=== PATIENT | female | born 1995 | race Caucasian/White ===

== ENCOUNTER 2016-11-18 02:41 | Emergency (ER) | payer OTHER ==
[~2016-11-18] VITALS: Ht 154.9 cm; Wt 55.6 kg
[~2016-11-18 02:41] MED LIST: BCPILLS PO; PRENTAB26 PO
[2016-11-18 02:44] VITALS: TEMP 36.6; Ht 154.9 cm; Wt 55.6 kg
[2016-11-18] MEDS ORDERED: ALBU18002 INH (03:00)
[2016-11-18] MEDS ORDERED: LEVO1IUD INT UTER (03:00)
[2016-11-18] MEDS ORDERED: BUPR-79 PO (03:00)
[2016-11-18] MEDS ORDERED: CEFTRIAXONE SOD INJ 1 GM ADDVIAL IM STA (04:04)
[2016-11-18] MEDS ORDERED: PRED20TA2 PO (04:11)
[2016-11-18] MEDS ORDERED: AZITHROMYCIN 250 MG TAB PO ONE (04:15)
[2016-11-18] MEDS ORDERED: NORCO 5/325MG HOME PACK PO ONE (04:15)
[2016-11-18 04:17] VITALS: BP 120/74; PULSE 73; O2SAT 98
[2016-11-18 05:34] LABS: URINE APPEARANCE TURBID (CLEAR); URINE BILIRUBIN NEG (NEG); URINE COLOR YELLOW; URINE EPITHELIAL CELL AUTO >30 /lpf (0-5); URINE NITRITE NEG (NEG); URINE PH 6.5 (4.5-7.5); URINE SPECIFIC GRAVITY 1.027 (1.000-1.030); UROBILINOGEN NEG (NEG); ZZUR CULT IF INDIC CLEAN CATCH YES
[2016-11-18 05:36] LABS: MANUAL MICROSCOPIC REQUIRED? NO; REVIEW REQ? YES
--- NOTE | 2016-11-18 07:30 | EMERGENCY ROOM VISIT NOTE ---
History First contact with patient: 02:47 Chief Complaint: VAGINAL DISCHARGE Stated Complaint: SWOLLEN,RED,ITCHY VAGINA History of Present Illness The patient is a 21 year old female who presents to the Emergency Room with complaints of vaginal irritation for the past week that is acutely worsened over the past 3 hours. The patient reports having some generalized irritation vaginally without drainage or discharge. The patient states her symptoms have been slowly escalating in nature, and she felt like she may have a yeast infection. The patient used a single dose of Monistat before bed, and then went to sleep. When she awoke tonight she states that she had significant burning and irritation of the vaginal vault. The patient has not had fever or chills. She is sexually active with a new partner, and states that she has not had recent STD testing. The patient's last FACILITY SERVICE MANAGER appointment was about 10 days ago, and she did not have any issues at that time. The patient is without abdominal pain. She denies chance of . She rates her discomfort an 8/ 10. Review of Systems More than 10 systems were reviewed and otherwise negative with the exception of history of present illness. Past Medical/Surgical History Medical Problems: (1) Chronic Tonsillitis (2) (3) Urin Tract Infection Nos (4) Uterine contractions at greater than 20 weeks of gestation Surgical Problems: (1) No significant past surgical history Family History No pertinent family history Social History Smoking Status: Former Smoker Alcohol Use: none Marital Status: single Housing Status: lives with family Current/Historical Medications Scheduled Bupropion (Wellbutrin Sr), Unknown Dose PO DAILY Levonorgestrel (Iud) (Corazon), Unknown Dose INT UTER DIRECTED Prednisone (Prednisone Tab), 2 TAB PO DAILY Scheduled PRN Albuterol Sulfate (Proair Respiclick), 2 PUFFS INH Q4H PRN for Shortness of Breath Allergies Coded Allergies: No Known Allergies (Unverified , 11/18/16) Physical Exam Vital Signs Date Time Temp Pulse Resp B/P (MAP) Pulse Ox O2 Delivery O2 Flow Rate FiO2 11/18/16 04:17 73 18 120/74 98 Room Air 11/18/16 02:44 36.6 79 20 112/61 99 Room Air Pain Rating (0-10): 2.0 Physical Exam VITALS: Vitals are noted on the nurse's note and reviewed by myself. Vital signs stable. GENERAL: Well-developed, well-nourished, white female, who is in no acute distress and resting comfortably. Patient is cooperative with the examination. HEAD: Normocephalic atraumatic. HEART: Regular rate and rhythm without murmurs gallops or rubs. LUNGS: Clear to auscultation bilaterally without wheezes, rales or rhonchi. No retractions or accessory muscle use. ABDOMEN: Positive normal bowel sounds x 4. Soft, nontender, without masses or organomegaly. No guarding or rebound tenderness. : Examination was performed in the presence of female nursing prep cook. Normal-appearing external female genitalia. The vaginal vault is erythematous without bleeding. There is a thick white drainage as well as a thin beige drainage coming from the cervix. Cultures were obtained. No cervical motion tenderness. Medical Decision & Procedures Laboratory Results Test 11/18/16 02:55 11/18/16 03:45 Urine Color YELLOW Urine Appearance TURBID (CLEAR) Urine pH 6.5 (4.5-7.5) Urine Specific Bath 1.027 (1.000-1.030) Urine Protein NEG (NEG) Urine Glucose (UA) NEG (NEG) Urine Ketones TRACE (NEG) Urine Occult Blood NEG (NEG) Urine Nitrite NEG (NEG) Urine Bilirubin NEG (NEG) Urine Urobilinogen NEG (NEG) Urine Leukocyte Esterase SMALL (NEG) Urine WBC (Auto) 10-30 /hpf (0-5) Urine RBC (Auto) >30 /hpf (0-4) Urine Hyaline Casts (Auto) 0 /lpf (0-5) Urine Epithelial Cells (Auto) >30 /lpf (0-5) Urine Bacteria (Auto) NEG (NEG) Urine Crystals CALCIUM OXALATE (NONE Urine Test NEG (NEG) Date/Time Source Procedure Growth Status 11/18/16 03:45 Cervix Swab Trichomonas Preparation - Final Complete Medications Administered Medications (Trade) Dose Ordered Sig/Teddy Route Start Time Stop Time Status Last Admin Dose Admin Ceftriaxone Sodium (Rocephin Inj) 1 gm NOW STAT IM 11/18/16 04:04 11/18/16 04:05 DC 11/18/16 04:25 1 GM Azithromycin (Zithromax Tab) 1,000 mg NOW ONCE PO 11/18/16 04:15 11/18/16 04:16 DC 11/18/16 04:24 1,000 MG Prednisone (PredniSONE TAB) 40 mg NOW STAT PO 11/18/16 04:04 11/18/16 04:05 DC 11/18/16 04:24 40 MG Acetaminophen/ Hydrocodone Bitart ([place] 5/325mg Home Pack) 1 homepack UD ONCE PO 11/18/16 04:15 11/18/16 04:16 DC 11/18/16 04:24 1 HOMEPACK ED Course Physical exam and history were performed. Nursing notes and EMR were reviewed. Patient appears to have vaginal irritation for the past week is acutely exacerbated. On examination she does have drainage and discharge which was cultured and sent to the lab. Urine was collected and is negative. Some of her symptoms may be the result of contact dermatitis from Monistat, and I recommended the patient discontinue this medication. She will be given 1 g IM Rocephin as well as 1 g oral Zithromax for her symptoms. She will need to follow with FACILITY SERVICE MANAGER for further care and management. Symptomatically she will be treated with a home pack of Vicodin as well as a short course of prednisone. The patient was otherwise invited back to the emergency department with any new, worsening, or concerning symptoms. She was pleased with plan of care voice understanding. The chart was completed utilizing [employer] Speech Voice Recognition Software. Grammatical errors, random word insertions, pronoun errors, and incomplete sentences are an occasional consequence of this system due to software limitations, ambient noise, and hardware issues. Any formal questions or concerns about the content, text, or information contained within the body of this dictation should be directly addressed to the provider for clarification. . Medical Decision Differential diagnosis: Etiologies such as STD, contact dermatitis, infection, ectopic , dysfunction uterine bleeding, bleeding dyscrasia, trauma, infection, as well as others were entertained. Impression Primary Impression: Vaginal irritation Additional Impression: Contact dermatitis Departure Information Dispostion Home / Self-Care Condition GOOD Prescriptions Prednisone (Prednisone Tab) 20 Mg Tab 2 TAB PO DAILY for 3 Days, #6 TAB Prov: Uzair Mcnally PA-C 11/18/16 Forms HOME CARE DOCUMENTATION FORM, Work Instructions, Additional Instructions: Patient was seen and evaluated today in the emergency department fo medical care. Return to work on 11/20/2016. Please excuse. IMPORTANT VISIT INFORMATION Patient Instructions My [facility] Additional Instructions You were seen and evaluated today on an emergency basis only. This is not a substitute for, or an effort to provide, complete comprehensive medical care. It is not possible to recognize and treat all injuries or illnesses in a single emergency department visit. For this reason it is recommended that you followup with FACILITY SERVICE MANAGER with any ongoing or persistent symptoms. [place] (hydrocodone/acetaminophen) 5/325 mg (homepack) every 6 hours as needed for worsening breakthrough pain. Do not drink or drive on [place]. This medication will likely make you tired. Do not take [place] and Tylenol at the same time as both contain acetaminophen. [place] may cause constipation. You may wish to take an umwg-[id number]-yviivsy stool softener like Colace if this occurs. Take prednisone daily for the next 3 days. You are welcome to return to the emergency department anytime with new, worsening, or concerning symptoms. Work Instructions Additional Work Instructions: Patient was seen and evaluated today in the emergency department for medical care. Return to work on 11/20/2016. Please excuse. Problem Qualifiers
[2016-11-20 07:06] LABS: CHLAMYDIA TRACH RNA*** NOT DETECTED (NOT DETECTED); GC (NEIS GONORRHOEAE)RNA** NOT DETECTED (NOT DETECTED)
== END 2016-11-18 04:45 | disposition home or self-care (01) ==
LOC: C.EDB 02:43 → C.EDA 04:45
DX: N89.8 Other specified noninflammatory disorders of vagina (principal); L25.9 Unspecified contact dermatitis, unspecified cause; Z87.440 Personal history of urinary (tract) infections; Z87.891 Personal history of nicotine dependence; Z79.899 Other long term (current) drug therapy

== ENCOUNTER 2021-01-20 06:00 | Inpatient (IN) ==
[2021-01-20] MEDS ORDERED: FLUTICASONE PROP HFA INH 44 MCG INHALER INH PRN (08:26)
[2021-01-20] MEDS ORDERED: OXYTOCIN 30 UNITS/500 ML BAG IV PRN ×3 (08:26→17:22)
[2021-01-20] MEDS ORDERED: ONDANSETRON INJ 2 MG/ML 2 ML VIAL IV PRN ×2 (08:26→15:17)
[2021-01-20] MEDS ORDERED: valACYclovir HCL 500 MG TABLET PO ONE (08:26)
--- NOTE | 2021-01-20 08:40 | History & Physical Report ---
Date of Service January 20, 2021 Assessment & Plan (1) Active labor at term: Plan: 25-year-old -0-0-1 at 39 weeks and 3 days of gestation presenting with regular contractions and in active labor, Vital signs stable afebrile, GBS negative, heart rate reassuring, History of genital herpes, on Valtrex suppression therapy since 34 weeks, no symptoms or signs of herpes, Plan to admit, monitor, IV fluids, labs and expectant management. Patient denies pain medications nor epidural for now. All questions were answered. (2) History of herpes genitalis: History of Present Illness Chief Complaint: Contractions Primary Care Provider: Tatiana Villareal MD Patient is a 25-year-old -0-0-1 at 39 weeks and 3 days of gestation who has been feeling contractions since 1 AM. They got more regular and painful since 4 AM. No leakage of fluid or vaginal bleeding, good movements. She was check by labor and delivery nurse at 6 AM and her cervix was 4 cm dilated. Patient states her pain is going up to 8 out of 10 in intensity. She denies pain medications nor epidural for now. Her cervix is now 5 cm dilated, 80% effaced and head at -2 station with a bulging bag. She is now being admitted for labor. Her has been complicated by, 1 history of asthma, on inhaler as needed, has not been using inhaler for months. 2 history of depression, off medications and doing well. 3 history of herpes simplex virus infection in November, has been on Valtrex 500 mg twice a day since 34 weeks. Denies any symptoms of herpes including itching, burning, blisters or lesions. Allergies Allergy/AdvReac Type Severity Reaction Status Date / Time No Known Allergies Allergy Verified 01/20/21 06:34 Home Medications Medication Instructions Recorded Confirmed Type albuterol sulfate 90 mcg/actuation 1 - 2 puff INHALATION DIRECTED 12/15/19 01/20/21 History aerosol inhaler PRN prenat.vits,mo,[id number] 1 tab PO DAILY 10/17/20 01/20/21 History valacyclovir 500 mg tablet 500 mg PO BID 12/23/20 01/20/21 History (Valtrex) famotidine 20 mg tablet (Pepcid) 20 mg PO DAILY 01/20/21 01/20/21 History magnesium oxide 400 mg PO DAILY 01/20/21 01/20/21 History Patient History Medical History Asthma Cholelithiasis complicating in third trimester, antepartum Depression Herpes dx 2020 No significant past medical history Surgical History History of tonsillectomy and adenoidectomy Family History Father Colorectal cancer Grandmother Diabetes Social History Smoking Status: Former smoker Years Smoked: 3; Second Hand Exposure: No; Hx Alcohol Use: Yes Hx Substance Use: Yes Last Used Substance Other:: 2019 Preferred Language: Cypriot marital status: Single current occupational status: employed 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 Review of Systems as per Subjective / HPI Physical Exam Constitutional: well developed, well nourished and + acute distress (With contractions only) Gastrointestinal (Abdomen): Inspection/Auscultation: abdomen normal to inspection and + abdomen distended Genitourinary: normal external appearance (No lesions) OB Exam Abdomen: + vertex Manual OB Exam: + cervical dilation 5 cm, + cervical effacement 80% and + station -2 OB Exam Monitor Tracing: + external uterine monitor used and + category I [facility]) Vital Signs (Past 12 Hours) Vital Signs Temp Pulse Resp BP 01/20/21 07:36 36.8 C 92 H 18 112/67 01/20/21 06:36 37.1 C 95 H 18 108/71 01/20/21 06:30 37.1 C 95 H 18 108/71
[2021-01-20 08:45] LABS: Hematocrit (blood only) 38.3 % (37-47); Hemoglobin 13.7 g/dL (12.0-16.0); Mean Corpuscular Hemoglobin 33.1 pg (25-34); Mean Corpuscular Hgb Conc 35.8 g/dL (32-36); Mean Corpuscular Volume 92.5 fL (80-100); Mean Platelet Volume 10.5 fL (7.4-10.4); Platelet Count 230 K/uL (130-400); RDW Coefficient of Variation 13.4 % (11.5-14.5); RDW Standard Deviation 45.4 fL (36.4-46.3); Red Blood Count 4.14 M/uL (4.2-5.4); White Blood Count 10.86 K/uL (4.8-10.8)
[2021-01-20] MEDS: LACTATED RINGER'S 1,000 ML IV PRN ×3 (08:45→15:36)
--- NOTE | 2021-01-20 09:33 | Anesthesiology Consultation ---
Date of Service January 20, 2021 Assessment & Plan Chart Review Chart Review: Acceptable Risk for Surgery, Patient NOT seen in Pre Admission Testing and Acceptable Risk for Labor Epidural Consults Requested none ASA ASA2 Proposed Anesthesia Anesthesia Type: Labor Epidural and CSE History Height/Weight Height: 5 ft 1 in Weight: 73.936 kg Allergies Allergy/AdvReac Type Severity Reaction Status Date / Time No Known Allergies Allergy Verified 01/20/21 06:34 Medications Home Medications Medication Instructions Recorded Confirmed Last Taken albuterol sulfate 90 mcg/actuation 1 - 2 puff INHALATION DIRECTED 12/15/19 01/20/21 Unknown aerosol inhaler PRN prenat.vits,mo,[id number] 1 tab PO DAILY 10/17/20 01/20/21 01/19/21 08:00 valacyclovir 500 mg tablet 500 mg PO BID 12/23/20 01/20/21 01/19/21 20:00 (Valtrex) famotidine 20 mg tablet (Pepcid) 20 mg PO DAILY 01/20/21 01/20/21 01/19/21 20:00 magnesium oxide 400 mg PO DAILY 01/20/21 01/20/21 01/19/21 20:00 Active Medications Generic Name Dose Route Start Last Admin Trade Name Freq PRN Reason Stop Dose Admin Lactated Ringer's 1,000 mls @ 150 mls/hr 01/20/21 08:26 01/20/21 08:45 Lr IV 01/22/21 08:25 150 mls/hr .[id number] PRN Administration L&D Protocol Protocol Past Medical History Medical History Asthma Cholelithiasis complicating in third trimester, antepartum Depression Herpes dx 2020 No significant past medical history Exercise / Class Metabolic Activity II 4-5 Yardwork/Stairs/Walk up hill Past Family History Family History Father Colorectal cancer Grandmother Diabetes Past Surgical History Surgical History History of tonsillectomy and adenoidectomy Past Anesthesia History No Hx of Anesthesia Complications and No Family Hx of Anesthesia Complications History of PONV No Hx of PONV and No Hx of Motion Sickness Social History Smoking Status: Former smoker Hx Alcohol Use: Yes Hx Substance Use: Yes substance use type: marijuana Last Used Substance Other:: 2019 Physical Exam Vital Signs Last Vital Signs Temp 36.8 C 01/20/21 07:36 Pulse 92 H 01/20/21 07:36 Resp 18 01/20/21 07:36 BP 112/67 01/20/21 07:36 Testing Laboratory Results 01/20/21 08:35
[2021-01-20] MEDS ORDERED: BUTORPHANOL TARTRATE 1 MG/ML VIAL IV ONE (12:40)
--- NOTE | 2021-01-20 12:51 | Obstetrical Progress Note ---
Date of Service January 20, 2021 Assessment & Plan Admission and Anticipated Discharge Date Admission Date: January 20, 2021 Subjective Patient is reevaluated. She has been having regular contractions and they are getting worse. She desires IV pain medication and declines epidural. Vaginal exam, 6 cm dilated, 80% effaced, with bulging tight bag, AROM with meconium stained fluid, head at -2 station. heart rate category 1. Discussed pain management during labor and the possible risks and side effects of IV pain medication versus epidural. She still desires IV pain medication and declines epidural for now. Continue to monitor closely. Results & Data ([facility]) Vital Signs (Past 12 Hours) Vital Signs Temp Pulse Resp BP 01/20/21 12:29 75 122/69 01/20/21 12:28 36.6 C 18 01/20/21 09:54 18 01/20/21 07:36 36.8 C 92 H 18 112/67 01/20/21 06:36 37.1 C 95 H 18 108/71 01/20/21 06:30 37.1 C 95 H 18 108/71
[2021-01-20] MEDS ORDERED: ACETAMINOPHEN 325 MG TAB PO PRN ×2 (13:44→17:22)
[2021-01-20] MEDS ORDERED: ePHEDrine sulfate 50 MG/ML AMP ONE (14:28)
[2021-01-20] MEDS ORDERED: fentaNYL citrate 100 MCG/2 ML VIAL ONE (14:28)
[2021-01-20] MEDS ORDERED: BUPIVACAINE 0.25% 30 ML VIAL ONE (14:28)
[2021-01-20] MEDS ORDERED: SODIUM CHLORIDE 0.9% INJ 10 ML VIAL ONE (14:28)
[2021-01-20] MEDS ORDERED: fentaNYL 2MCG/ML ROPIVACAINE 1.25MG/ML 100 ML BAG EPI ONE (14:29)
--- NOTE | 2021-01-20 14:40 | Obstetrical Progress Note ---
Date of Service January 20, 2021 Assessment & Plan Admission and Anticipated Discharge Date Admission Date: January 20, 2021 Subjective Patient is reevaluated. She has been very painful and asking for epidural for pain. Has not received IV pain medication. Her cervix is 6 cm dilated, 90% effaced and head at -1 station. heart rate is reassuring, category 1, contractions every 2 to 4 minutes. Continue to monitor, epidural for pain. Results & Data ([facility]) Vital Signs (Past 12 Hours) Vital Signs Temp Pulse Resp BP Pulse Ox 01/20/21 14:23 204 H 84 L 01/20/21 13:42 75 121/59 L 01/20/21 12:29 75 122/69 01/20/21 12:28 36.6 C 18 01/20/21 09:54 18 01/20/21 07:36 36.8 C 92 H 18 112/67 01/20/21 06:36 37.1 C 95 H 18 108/71 01/20/21 06:30 37.1 C 95 H 18 108/71
[2021-01-20] MEDS ORDERED: NALBUPHINE HCL INJ 10 MG/ML AMP IV PRN (15:17)
[2021-01-20] MEDS ORDERED: PROMETHAZINE HCL 25 MG in SODIUM CHLORIDE 0.9% 50 ML IV PRN (15:17)
[2021-01-20] MEDS ORDERED: NALOXONE HCL 0.4 MG/1 ML VIAL/CARP IV PRN (15:17)
[2021-01-20] MEDS ORDERED: NALOXONE HCL 1 MG in SODIUM CHLORIDE 0.9% 1000ML 1,000 ML IV PRN (15:17)
[2021-01-20] MEDS ORDERED: fentaNYL 2MCG/ML ROPIVACAINE 1.25MG/ML 100 ML BAG EPI PRN (15:17)
[2021-01-20] MEDS ORDERED: diphenhydrAMINE 50 MG/ML VIAL IV PRN (15:17)
[2021-01-20] MEDS ORDERED: ePHEDrine sulfate 50 MG/ML AMP IV PRN (15:17)
[2021-01-20] MEDS ORDERED: MINERAL OIL 30 ML UDC ONE (16:43)
[2021-01-20] MEDS ORDERED: SUPERCREAM 0.870% 15 GM JAR EXT PRN (17:22)
[2021-01-20] MEDS ORDERED: HYDROCORTISONE ACETATE 25 MG SUPP PR PRN (17:22)
[2021-01-20] MEDS ORDERED: BENZOCAINE 20% AER SPR 82.5 GM CAN EXT PRN (17:22)
[2021-01-20] MEDS ORDERED: bisacodyL 10 MG SUPP PR PRN (17:22)
[2021-01-20] MEDS ORDERED: oxyCODONE/ACETAMINOPHEN 5mg/325mg TAB PO PRN (17:22)
[2021-01-20] MEDS ORDERED: MEASLES, MUMPS & RUBELLA VIRUS VIAL SQ ONE (17:22)
[2021-01-20] MEDS ORDERED: METHYLERGONOVINE MALEATE 0.2 MG TAB PO STA (17:22)
[2021-01-20] MEDS ORDERED: DIPHTHERIA/TETANUS/PERTUSSIS 0.5 ML SYR/VIAL IM ONE (17:22)
--- NOTE | 2021-01-20 17:41 | Anesthesiology Progress Note ---
Date of Service January 20, 2021 Anesthesia Post Procedure Vital Signs Vital Signs: Temp Pulse Resp BP Pulse Ox 01/20/21 17:36 77 109/64 01/20/21 17:21 91 H 114/55 L 01/20/21 17:12 75 99 01/20/21 17:07 82 100 01/20/21 17:06 82 110/59 L 01/20/21 17:02 80 99 01/20/21 16:57 83 99 01/20/21 16:52 94 H 108/53 L 98 01/20/21 16:47 113 H 89 L 01/20/21 16:43 103 H 123/60 01/20/21 16:42 115 H 84 L 01/20/21 16:41 94 H 78 L 01/20/21 16:37 79 88 L 01/20/21 16:32 80 99 01/20/21 16:28 88 74 L 01/20/21 16:27 92 H 87 L 01/20/21 16:23 80 135/101 H 01/20/21 16:22 83 90 01/20/21 16:19 83 78 L 01/20/21 16:17 79 100 01/20/21 16:12 89 100 01/20/21 16:08 60 112/57 L 01/20/21 16:07 58 L 98 01/20/21 16:02 68 99 01/20/21 15:57 55 L 97 01/20/21 15:53 55 L 129/58 L 01/20/21 15:52 59 L 99 01/20/21 15:47 54 L 96 01/20/21 15:42 56 L 97 01/20/21 15:37 61 98 01/20/21 15:35 64 92 01/20/21 15:34 67 117/56 L 01/20/21 15:32 67 97 01/20/21 15:31 65 116/55 L 01/20/21 15:28 68 117/57 L 01/20/21 15:27 69 100 01/20/21 15:25 62 114/55 L 01/20/21 15:23 69 89 L 01/20/21 15:22 67 119/59 L 100 01/20/21 15:19 67 117/58 L 01/20/21 15:17 60 97 01/20/21 15:16 57 L 113/57 L 01/20/21 15:13 59 L 107/51 L 01/20/21 15:12 61 99 01/20/21 15:10 82 93 01/20/21 15:07 82 71 L 01/20/21 15:04 80 92 01/20/21 15:02 76 83 L 01/20/21 14:56 93 H 73 L 01/20/21 14:45 73 120/58 L 01/20/21 14:44 37.0 C 18 01/20/21 14:23 204 H 84 L 01/20/21 13:42 75 121/59 L 01/20/21 12:29 75 122/69 01/20/21 12:28 36.6 C 18 01/20/21 09:54 18 01/20/21 07:36 36.8 C 92 H 18 112/67 01/20/21 06:36 37.1 C 95 H 18 108/71 01/20/21 06:30 37.1 C 95 H 18 108/71 Notes Mental Status: alert / awake / arousable Nausea / Vomiting: adequately controlled Pain: adequately controlled Airway Patency, RR, SpO2: stable & adequate BP & HR: stable & adequate Hydration State: stable & adequate Neuraxial Anesthesia: was administered and sensory block is resolving Anesthetic Complications: no major complications apparent and see Notes below (epidural catheter removed w/tip intact)
--- NOTE | 2021-01-20 17:41 | Anesthesia Procedure Note ---
Date of Service January 20, 2021 Anesthesia Post Epidural Note Vital Signs Vital Signs: Temp Pulse Resp BP Pulse Ox 37.0 C 77 18 109/64 99 01/20/21 14:44 01/20/21 17:36 01/20/21 14:44 01/20/21 17:36 01/20/21 17:12 Notes Mental Status: alert / awake / arousable Nausea / Vomiting: adequately controlled Pain: adequately controlled Airway Patency, RR, SpO2: stable & adequate BP & HR: stable & adequate Hydration State: stable & adequate Neuraxial Anesthesia: was administered and sensory block is resolving Anesthetic Complications: no major complications apparent Epidural: Removed without complications and With tip intact
--- NOTE | 2021-01-20 17:57 | Delivery Summary ---
Vaginal Delivery Summary Date of Service January 20, 2021 Vaginal Delivery Summary Time of delivery 1650 p.m. Patient was found to be fully dilated and desire to push. She pushed for about 35 minutes and delivered the head without difficulty. Unable to deliver anterior shoulder with minimal traction. I so posterior/left shoulder and hand were bulging in the posterior fourchette. I delivered the shoulder and arm and then anterior/right shoulder arm and body and handed off the baby to the mother. Mouth and nose were suctioned, cord was clamped x2 and cut at 1 minute delay. Baby was vigorously moving and crying. Vagina and perineum were checked for lacerations. There was only second-degree laceration in the posterior fourchette. Rectal exam was done and excellent sphincter tone was noted. And perineal body muscles around the sphincter were held with Allis clamps brought to the midline and those were repaired with 2-0 Vicryl, with U-type sutures x2. With a new 2-0 Vicryl vaginal mucosa, bulbocavernosus muscles were repaired and skin was reapproximated in a subcuticular fashion. Excellent hemostasis was achieved. Rectal exam was done and excellent sphincter was noted and no sutures were felt. Placenta was found to be in the vagina, delivered spontaneously as intact and complete. Uterus was explored found to be empty, lower segment was cleared of all clots and debris, EBL was 250 mL and fundus was firm. Mom and baby tolerated procedure well. Sponge, lap, needle, instrument count were correct x2. There was a viable female infant Apgars 9/10, weight is pending. No complications happened and I was present during whole procedure.
[2021-01-20] MEDS ORDERED: PRENATAL VITAMIN 1 TAB PO ONE (19:11)
[2021-01-20] MEDS ORDERED: FAMOTIDINE 20 MG TAB PO SCH (21:00)
[2021-01-20] MEDS: IBUPROFEN 600 MG TAB PO PRN (21:05)
[2021-01-20] MEDS: DOCUSATE SODIUM 100 MG CAP PO SCH (21:06)
[2021-01-21] MEDS: IBUPROFEN 600 MG TAB PO PRN ×4 (03:49→18:07)
[2021-01-21 07:10] LABS: Hematocrit (blood only) 34.8 % (37-47); Hemoglobin 12.2 g/dL (12.0-16.0); Mean Corpuscular Hemoglobin 32.9 pg (25-34); Mean Corpuscular Hgb Conc 35.1 g/dL (32-36); Mean Corpuscular Volume 93.8 fL (80-100); Mean Platelet Volume 10.6 fL (7.4-10.4); Platelet Count 198 K/uL (130-400); RDW Coefficient of Variation 13.6 % (11.5-14.5); RDW Standard Deviation 46.8 fL (36.4-46.3); Red Blood Count 3.71 M/uL (4.2-5.4); White Blood Count 12.13 K/uL (4.8-10.8)
[2021-01-21] MEDS: DOCUSATE SODIUM 100 MG CAP PO SCH (07:50)
[2021-01-21] MEDS ORDERED: FERROUS SULFATE 325 MG TAB PO SCH (08:00)
[2021-01-21] MEDS ORDERED: PRENATAL VITAMIN 1 TAB PO SCH (08:00)
--- NOTE | 2021-01-21 10:06 | Obstetrical Progress Note ---
Date of Service January 21, 2021 Assessment & Plan (1) Normal course: PPD #1 PT doing well anticipate disch this PM Results & Data ([facility]) Vital Signs (Past 12 Hours) Vital Signs Temp Pulse Resp BP Pulse Ox 01/21/21 07:45 36.6 C 72 21 106/70 99 01/21/21 07:34 36.8 C 63 18 105/68 100 01/21/21 03:40 36.5 C 66 20 115/70 01/20/21 23:35 36.6 C 49 L 18 100/58 L
[2021-01-21] MEDS ORDERED: bisacodyL 5 MG TABEC PO SCH (20:00)
== END 2021-01-21 18:30 | disposition home or self-care (01) | DRG 806 ==
LOC: OPB 06:00 → 4S1 06:04 → 4S2 20:08

== ENCOUNTER 2024-08-24 06:46 | Inpatient (IN) ==
--- OUTSIDE RECORDS SUMMARY | 2024-08-24 06:54 | External Medical Summary | Summary of Care ---
Author Name Unknown Organization [facility] Address [address] [facility] [place] [address] Phone [phone] Care Team Providers Care Head Of Loss Prevention Name Role Phone Unavailable Primary Care Provider Unavailabl e Encounter Details Date Type Department Care Team (Late st Contact Info) Description 08/16/2024 1:30 PM EDT Nurse Only Gynecology/Obstetrics [facility] [address] [place] [address] Gw, Nurse Obgyn Injection [address] [facility] [place] [address] Allergies Active Allergy Reactions Criticality Noted Date Comments Miconazole 04/27/2017 documented as of this encounter (statuses as of 08/16/2024) Medications Albuterol Sulfate HFA 108 (90 Base) MCG/ACT Inhalation Aerosol SolutionIndicatio ns:Mild persistent asthma without complication Inhale 2 Puffs by mouth 4 times a day. 18 g 1 Active Flovent Diskus 50 MCG/BLIST Inhalation Aerosol Powder Breath Activated (Fluticasone Propionate (Inhal))Indicatio ns:Maternal asthma complicating Inhale 1 Puff by mouth 2 times a day. 60 Blister Dosing Unit 12 1 Active Forte Oral Tablet Take by mouth. Active Vitamin 27-0.8 MG Oral TabletIndications :Encounter for supervision of other normal in first trimester 1 tablet by mouth daily 90 Tablet 3 4 Active Riboflavin 400 MG Oral Tablet Take 1 Tablet by mouth daily. 90 Tablet 1 5 Active Omeprazole 20 MG Oral Capsule Delayed Release (PriLOSEC) Take 1 Capsule by mouth in the morning. 90 Capsule 3 5 Active Breast Pump Dispense double electric breast pump. Dx:Z39.1 1 Each 5 Active valACYclovir HCl 500 MG Oral Tablet (Valtrex)Indicati ons:HSV (herpes simplex virus) infection Take 1 Tablet by mouth in the morning and 1 Tablet before bedtime. 60 Tablet 5 Active Hospital, Clinic, or Other Facility Administered Medication Ordered Dose Route Frequency Start Date End Date Status betamethasone acet & sod phos (Celestone Soluspan) inj 12 mgIndications:Supervision of other normal , antepartum,History of labor 12 mg IM ONCE 08/16/2024 08/16/2024 Ended documented as of this encounter (statuses as of 08/16/2024) Active Problems Problem Noted Date Diagnosed Date Supervision of other normal , antepartu m 03/01/2024 Heart palpitations 03/01/2024 Overview (03/01/2024): Cardiology referral placed HSV (herpes simplex virus) infection 11/20/2020 Supervision of other normal 06/19/2020 Overview (01/08/2021): Problem Action Taken Date entered Entered by Date resolved Nutrition Provided a due date letter for patient to attend WIC 06/19/2020 France Tyler RN 06/19/2020 1st trimester education Reviewed w/pt 06/19/2020 France Tyler RN 06/19/2020 Problem Action Taken Date entered Entered by Date resolved Current needs or questions Patient denies having any current needs or questions 07/15/2020 France Tyler RN 07/15/2020 Problem Action Taken Date entered Entered by Date resolved Current needs or questions Patient denies having any current needs or questions 08/12/2020 France Tyler RN 08/12/2020 Problem Action Taken Date entered Entered by Date resolved 2nd trimester education reviewed w/pt 08/12/2020 France Tyler RN 08/12/2020 Problem Action Taken Date entered Entered by Date resolved 3rd trimester education reviewed w/pt 11/19/2020 France Tyler RN 11/19/2020 Problem Action Taken Date entered Entered by Date resolved provided a [employer] Breast pump form for pt to review 12/17/2020 France Tyler RN 12/17/2020 Problem Action Taken Date entered Entered by Date resolved Current needs or questions Patient denies having any current needs or questions 12/31/2020 France Tyler RN 12/31/2020 Problem Action Taken Date entered Entered by Date resolved Current needs or questions Patient denies having any current needs or questions 01/08/2021 France Tyler RN 01/08/2021 History of depression 06/19/2020 Overview (11/06/2020): Cora prn Maternal asthma complicating Overview (11/06/2020): 11/06/20 - using rescue inhaler 3-4x/week, rx Flovent BID Abnormal pelvic ultrasound 06/19/2020 Overview (09/13/2020): Probable endometrioma versus hemorrhagic cyst left ovary noted on dating & anatomy ultrasounds - recheck Major depressive disorder 05/03/2012 Overview (03/09/2017): Used to take Prozac, missed appts, not taking now, stable. 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 Supervision of normal first 11/07/2014 11/06/2016 Overview (05/30/2015): Patient declines flu vaccine. 04/18/2015 Jessie Yusuf RN 05/02/2015 Tdap Vaccine administered per clinic protocol. Pt given VIS(vaccine information sheet) Jessie Yusuf RN Problem Action Taken Date entered Entered by Date resolved Fatigue Schedule a short nap if possible Take vitamins Good nutrition and hydration will help 10/10/2014 France Tyler RN Nausea and vomiting due to Nutrition Review 9 months booklet 10/10/2014 France Tyler RN Class Planning to attend 10/10/2014 France Tyler RN Nutrition Provided due date letter for pt to attend [facility] 10/10/2014 France Tyler RN Home Nursing Pt declined 10/10/2014 France Tyler RN Problem Action Taken Date entered Entered by Date resolved Current needs or questions Patient denies having any current needs or questions 11/07/2014 Jessie Yusuf RN 11/07/14 Problem Action Taken Date entered Entered by Date resolved Nutrition follow up Seen by [facility] 01/22/2015 Jessie Yusuf RN 01/22/15 Problem Action Taken Date entered Entered by Date resolved First Will schedule childbirth classes 02/19/2015 Jessie Yusuf RN 02/19/15 Problem Action Taken Date entered Entered by Date resolved First Discussed hospital tour, reviewed dates and times 03/20/2015 Jessie Yusuf RN 03/20/15 Problem Action Taken Date entered Entered by Date resolved Current needs or questions Patient denies having any current needs or questions 04/03/2015 Jessie Yusuf RN 04/03/15 Problem Action Taken Date entered Entered by Date resolved Nutrition Attending [facility] 04/18/2015 Jessie Yusuf RN 04/18/15 Problem Action Taken Date entered Entered by Date resolved Breast vs bottle Planning breast- Most likely will want mirena for control 05/09/2015 Deanna Brown RN Problem Action Taken Date entered Entered by Date resolved Current needs or questions Patient denies having any current needs or questions 05/30/2015 France Tyler RN 05/30/15 Chronic daily headache 07/15/201203/07 documented as of this encounter (statuses as of 08/16/2024) Immunizations Name Administration Dates Next Due Diptheria/Tetanus (Adult) 08/15/2001,,01/16/1997,11/02,1996 HIB PRP-T, 4 Dose, PF, IM (H iberix, ActHib) 01/16/1997,1996,1996,09/01 HPV Vaccine, 4-Valent 02/02/2011,07/21/2010,08/2007 Hepatitis A, Ped/Adol., 18 y ear and below, 2-Dose 08/12/2011,07/21/2010 Hepatitis B, 0-19 yrs 01/16/1997,1996,06/17 IPV - Polio Virus Vaccine (Inact) 2001,11/27/1997,01/16/1997,10/23,1996 Influenza Vaccine, Live, Int ranasal, Trivalent (Flumist) 04/20/2007,05/24/2006 MMR - Measles/Mumps/Rubella Vaccine 08/15/2001,0 01/25/1998 Meningococcal Conjugate Vacc ine (Menactra/Menveo) 03/20/2008 PPD 07/27/2015 Seasonal Influenza Vac., MDV , IM, 0.5 mL (Fluzone) 02/16/2012,02/02/2011 TDAP (age 10 and older)(Boostrix) 11/06/2020, TDAP, Age 7 and older, IM (Adacel) 07/19/2024, Varicella Vaccine (Chicken Pox) 07/21/2010,01/04 documented as of this encounter Social History Tobacco Use Types Packs/Day Years Used Date Smoking Tobacco: Former Cigarettes Q uit: 07/12/2014 Smokeless Tobacco: Never Alcohol Use Standard Drinks/Week Comments No 0 (1 standard drink = 0.6 oz pur e alcohol) Hunger Vital Sign Answer Date Recorded Within the past 12 months, y ou worried that your food would run out before you got the money to buy more. Never true 03/01/20 24 Within the past 12 months, t he food you bought just didn't last and you didn't have money to get more. Never true 03/01/2024 [place] Depression Scale Answer Date Recorded [place] Depression Scale Total 4 08/02/2024 The thought of harming myself has occurred to me . Never 08/02/2024 Childcare Answer Date Recorded Do you feel overwhelmed with taking care of a child, family member or friend? No 03/01/2024 Does your family need help f inding childcare? (Household - for ages 0-17 years) Not on file 03/01/2024 Clothing Answer Date Recorded Have you been unable to get clothing when it was really needed? No 03/01/2024 Is your family able to get c lothes or diapers when needed? (Household - for ages 0-17 years) Not on file 03/01/2024 Personal Safety Answer Date Recorded Do you feel unsafe or have concerns for your saf ety? Yes 03/01/2024 Do you have concerns for you r family's safety? (Household - for ages 0-17 years) Not on file 03/01/2024 Utilities Answer Date Recorded Do you have trouble paying y our heating, water, or electric bill? No 03/01/2024 Is your family able to pay t he heat, water, or electric bill? (Household - for ages 0-17 years) Not on file 03/01/2024 Does your family have access to good internet? (Household - for ages 0-17 years) Not on file 03/01/2024 Employment Status Answer Date Recorded Are you unemployed or without regular income? No 03/01/2024 Does the household have a re gular source of income? (Household - for ages 0-17 years) Not on file 03/01/2024 Social Connections Answer Date Recorded How often do you feel lonely or isolated from th ose around you? Never 03/01/2024 Financial Resource Strain Answer Date R ecorded Do you have any trouble payi ng for your medications, or do you think you might in the future? No 03/01/2024 Does your family have troubl e paying for medicine? (Household - for ages 0-17 years) Not on file 03/01/2024 Transportation Needs Answer Date Record ed Do you have trouble getting a ride to medical visits or work? (Adult - for ages 18 years and over) Not on file 03/01/2024 Does your family have a hard time getting a ride to doctors visits? (Household - for ages 0-17 years) Not on file 03/01/2024 Has lack of transportation k ept you from medical appointments, meetings, work, or from getting things needed for daily living? Check all that apply. No 03/01/2024 Do you (or your family) have trouble finding or paying for a ride (transportation)? (Household - for ages 0-17 years) Not on file 03/01/2024 Housing Stability Answer Date Recorded Do you currently live in a s helter or have no steady place to sleep at night? No 03/01/2024 Do you think you are at risk of becoming homeless? (Adult - for ages 18 years and over) Not on file 03/01/2024 Does your family worry about paying for your home or becoming homeless? (Household - for ages 0-17 years) Not on file 1 Are you homeless or worried that you might be in the future? No 03/01/2024 Are you (or your family) ryan eless or worried that you might be in the future? (Household - for ages 0-17 years) Not on file Food Insecurity Answer Date Recorded Do you need food for this week? No 03/01/2024 Are you able to get enough f ood for your family? (Household - for ages 0-17 years) Not on file 03/01/2024 Does your family need food t his week? (Household - for ages 0-17 years) Not on file 03/01/2024 Do you always have enough fo od for your family? (Household - for ages 0-17 years) Not on file 03/01/2024 Food Insecurity Answer Date Recorded Within the past 12 months, y ou worried that your food would run out before you got the money to buy more. Never true 03/01/20 24 Within the past 12 months, t he food you bought just didn't last and you didn't have money to get more. Never true 03/01/2024 Do you need food for this week? No 03/01/2024 Estimated Date of Delivery Comme nts Yes 09/26/2024 Based on last me nstrual period of 12/21/2023 Sex and Gender Information Value Date Recorded Sex Assigned at Female 03/01/2024 10:17 AM EDT Legal Sex Female 6:23 AM EST Gender Identity Female 03/01/2024 10:17 AM EDT Sexual Orientation Straight 03/01/2024 10 :17 AM EDT documented as of this encounter Last Filed Vital Signs Vital Sign Reading Time Taken Comments Blood Pressure 104/64 08/16/2024 1:33 PM EDT Pulse - - Temperature - - Respiratory Rate - - Oxygen Saturation - - Inhaled Oxygen Concentration - - Weight - - Height - - Body Mass Index - - documented in this encounter Nursing Notes * Deanna Brown RN - 08/16/2024 1:34 PM EDT Pt here for 2nd betamethasone injection. Pt requesting doppler.Reviewed with Marcy and skye to listen to hearts. FHR 150's. Has appt tomorrow and will keep this. Baby moving well but has been working today and not able to monitor. Heading home now. Has been having irreg ctx, nothing worse.She will keep appt tomorrow. documented in this encounter Plan of Treatment Upcoming Encounters Date Type Department Care Team (Late st Contact Info) Description 08/17/2024 10:15 AM EDT Office Visit Gynecology/Obstetrics [facility] [address] [place] [id number] Janett Carvalho CRNP [address] [place] [phone] Health Maintenance Due Date Last Done Comments Depression Monitoring 2008 Pneumococcal Vaccine: Pediatrics (0 to 5 Years) and At-Risk Patients (6 to 18 Years and 19+ Years) (1 of 2 - PCV) 2015 Lipid Panel 2016 *SPIROMETRY ONCE FOR ASTHMA-ADULT 07/05/2016 COVID-19 Vaccine (1 - season) 2024 Influenza Vaccine (FLU shot) (Season Ended) 2025 02/16/2012, 02/02/2011, 04/20/2007, Additional history exists Pap Smear 03/01/2027 03/01/2024, 06/19/2020 DTap/Tdap Vaccines (5 - Td or Tdap) 07/19/2034 07/19/2024, 11/06/2020, 05/02/2015, Additional history exists Hepatitis B Vaccine Completed 01/16/1997, 1996, 1996 MENINGOCOCCAL (MENACTRA/MENVEO) Aged Out 03/20/2008 No longer eligible based on patient's age to complete this topic HPV (Gardasil) Vaccine Completed 1, 07/21/2010, 03/20/2008 Gonorrhea / Chlamydia Screen Discontinued 03/01/2024, 06/19/2020, 07/06/2018, Additional history exists Meningitis B Vaccine (Bexsero/Trumemba) Aged Out No longer eligible based on patient's age to complete this topic documented as of this encounter Medical Devices Not on filedocumented as of this encounter Visit Diagnoses Diagnosis Supervision of other normal , antepartum- Primary History of labor Personal history of pre-term labor documented in this encounter Administered Medications Inactive Administered Medications - up to 3 most recent administrations Medication Order MAR Action Action Date Dose Rate Site betamethasone acet & sod phos (Celestone Soluspan) inj 12 mg 12 mg, Intramuscular, ONCE, On Wed08/16/24 at 1400, For 1 doseIndications:Supervis ion of other normal , antepartum,History of labor Given 08/16/2024 1:34 PM EDT 12 mg Ventrogluteal Left documented in this encounter
--- OUTSIDE RECORDS SUMMARY | 2024-08-24 06:54 | External Medical Summary | Summary of Care ---
Author Name Unknown Organization [facility] Address [address] [facility] [place] [address] Phone [phone] Care Team Providers Care Promotions Assistant Sales Marketing Name Role Phone Unavailable Primary Care Provider Unavailabl e Reason for Visit * Reason Comments Return Visit Encounter Details Date Type Department Care Team (Late st Contact Info) Description 08/17/2024 10:15 AM EDT Office Visit Gynecology/Obstetric s [facility] [address] [place] [phone] Janett Carvalho CRNP [address] [place] [phone] Supervision of other normal , antepartum*; HSV (herpes simplex virus) infection; Heart palpitations Allergies Active Allergy Reactions Criticality Noted Date Comments Miconazole 04/27/2017 documented as of this encounter (statuses as of 08/17/2024) Medications Albuterol Sulfate HFA 108 (90 Base) [...] Tablet before bedtime. 60 Tablet 5 Active documented as of this encounter (statuses as of 08/17/2024) Active Problems Problem Noted Date Diagnosed Date Supervision of other normal , antepartu m 03/01/2024 Heart palpitations 03/01/2024 Overview (03/01/2024): Cardiology referral placed HSV (herpes simplex virus) infection 11/20/2020 Supervision of other normal 06/19/2020 Overview (01/08/2021): Problem Action Taken Date entered Entered by Date resolved Nutrition Provided a due date letter for patient to attend [facility] 06/19/2020 France Tyler RN 06/19/2020 1st trimester [...] 01/08/2021 History of depression 06/19/2020 Overview (11/06/2020): Buspar prn Maternal asthma complicating Overview (11/06/2020): 11/06/20 [...] as of this encounter (statuses as of 08/17/2024) Resolved Problems Problem Noted Date Diagnosed Date [...] due date letter for pt to attend [facility] 10/10/2014 France Tyler RN Home Nursing Pt declined 10/10/2014 France Tyler RN Problem Action Taken Date entered Entered by Date resolved Current needs or questions Patient denies having any current needs or questions 11/07/2014 Jessie Yusuf RN 11/07/14 Problem Action Taken Date entered Entered by Date resolved Nutrition follow up Seen by [facility] 01/22/2015 Jessie Yusuf RN 01/22/15 Problem Action [...] entered Entered by Date resolved Nutrition Attending [facility] 04/18/2015 Jessie Yusuf RN 04/18/15 Problem Action [...] as of this encounter (statuses as of 08/17/2024) Immunizations Name Administration Dates Next Due Diptheria/Tetanus [...] money to get more. Never true 03/01/2024 [place] Depression Scale Answer Date Recorded Andrews Depression Scale Total 4 08/02/2024 The thought [...] 03/01/2024 Does the household have a re lar source of income? (Household - for ages [...] Sign Reading Time Taken Comments Blood Pressure 106/68 08/17/2024 10:20 AM EDT Pulse - - Temperature - - Respiratory Rate - - Oxygen Saturation - - Inhaled Oxygen Concentration - - Weight 73 kg (161 lb) 08/17/2024 10:20 AM EDT Height - - Body Mass Index 30.42 08/02/2024 10:07 AM EDT documented in this encounter Progress Notes * Janett Carvahlo CRNP - 08/17/2024 10:44 AM EDT 34w2d Was at L&D 2 days ago with ?PPROM, testing was negative for this. She has not noticed any further leaking. Had betamethasone course, completed yesterday. She reports baby is more sluggish, but getting 10 movements in 2 hours. Advised to continue with kick counts. No bleeding or further LOF. DARRYL Greco * Emily Kelly CMA - 08/17/2024 10:20 AM EDT 34w2d Denies any concerns documented in this encounter Plan of Treatment Upcoming Encounters Date Type Department Care Team (Late st Contact Info) Description 08/31/2024 10:15 AM EDT Office Visit Gynecology/Obstetrics [facility] [address] [place] [id number] Janett Carvalho CRNP [address] [place] [phone] Health Maintenance Due Date Last Done Comments Depression Monitoring 2008 Pneumococcal Vaccine: Pediatrics (0 to 5 Years) and At-Risk Patients (6 to 18 Years and 19+ Years) (1 of 2 - PCV) 2015 Lipid Panel 2016 *SPIROMETRY ONCE FOR ASTHMA-ADULT 07/05/2016 COVID-19 Vaccine ( season) 2024 Influenza Vaccine (FLU shot) (Season [...] Supervision of other normal , antepartum- Primary HSV (herpes simplex virus) infection Herpes simplex without mention of complication Heart palpitations Palpitations documented in this encounter
--- OUTSIDE RECORDS SUMMARY | 2024-08-24 06:54 | External Medical Summary | Summary of Care ---
Author Name Unknown Organization [facility] Address [address] [facility] [place] [address] Phone [phone] Care Team Providers Care Pharmacogeneticist Name Role Phone Unavailable Primary Care Provider Unavailabl e Encounter Details Date Type Department Care Team (Late st Contact Info) Description 08/15/2024 Telephone Gynecology/Obstetrics [facility] [address] [place] [address] Talon Tang MD [address] [place] [phone] Allergies Active Allergy Reactions Criticality Noted Date Comments Miconazole 04/27/2017 documented as of this encounter (statuses as of 08/15/2024) Medications Albuterol Sulfate HFA 108 (90 Base) [...] as of this encounter (statuses as of 08/15/2024) Active Problems Problem Noted Date Diagnosed Date Supervision of other normal , antepartu m 03/01/2024 Heart palpitations 03/01/2024 Overview (03/01/2024): Cardiology referral placed HSV (herpes simplex virus) infection 11/20/2020 Supervision of other normal 06/19/2020 Overview (01/08/2021): Problem Action Taken Date entered Entered by Date resolved Nutrition Provided a due date letter for patient to attend [facility] 06/19/2020 France Tyler RN 06/19/2020 1st trimester [...] as of this encounter (statuses as of 08/15/2024) Resolved Problems Problem Noted Date Diagnosed Date [...] RN Class Planning to attend 10/10/2014 France Tlyer RN Nutrition Provided due date letter for pt to attend [facility] 10/10/2014 France Tyler RN Home Nursing Pt declined 10/10/2014 France Tyler RN Problem Action Taken Date entered Entered by Date resolved Current needs or questions Patient denies having any current needs or questions 11/07/2014 Jessie Yusuf RN 11/07/14 Problem Action Taken Date entered Entered by Date resolved Nutrition follow up Seen by [facility] 01/22/2015 Jessie Yusuf RN 01/22/15 Problem [...] entered Entered by Date resolved Nutrition Attending [facility] 04/18/2015 Jessie Yusuf RN 04/18/15 Problem [...] as of this encounter (statuses as of 08/15/2024) Immunizations Name Administration Dates Next Due Diptheria/Tetanus (Adult) 08/15/2001,,01/16/1997,11/02,1996 HIB PRP-T, 4 Dose, PF, IM (H iberix, ActHib) 01/16/1997,1996,1996,09/01 HPV Vaccine, 4-Valent 02/02/2011,07/21/2010,1108/2007 Hepatitis A, Ped/Adol., 18 y ear and [...] money to get more. Never true 03/01/2024 [place] Depression Scale Answer Date Recorded [place] Depression Scale Total 4 08/02/2024 The thought [...] AM EDT documented as of this encounter Miscellaneous Notes * Telephone Encounter - Babita Downing RN - 08/15/2024 1:52 PM EDT Called patient and made aware need to come into office tomorrow for 2nd betamethasone injection, patient scheduled for 1:30 states this would be 24 hours from 1st. Patient aware to call triage numberwith any changes at all, she verbalized understanding. * Telephone Encounter - Babita Downing RN - 08/15/2024 1:45 PM EDT Took call from Dr. Tang r/e patient, he evaluated her at [facility], states she is not ruptured, CEDRICK was 14, received 1st dose of betamethasone today at [facility], he would like for her to come into office tomorrow for the second dose. Patient is not aware, we need to call her and make aware to come into office tomorrow for second dose on nurse schedule. * Telephone Encounter - Ingrid Segundo LPN - 08/15/2024 9:[address] Tang. Patient to report to L&D for amnisure to r/o ROM. Patient agreeable. L&D made aware. * Telephone Encounter - Ingrid Segundo LPN - 08/15/2024 9:25 AM EDT Pt is currently 34w0d with an Estimated Date of Delivery: 09/26/24 - Patient was doing dishes and felt a pop and then a gush down her leg. She put toilet paper in underwear that she has not checked yet, its been about a half hour. Denies bleeding. +FM. Wednesday was having lizzie . No pain or contractions today. documented in this encounter Plan of Treatment Upcoming Encounters Date Type Department Care Team (Late st Contact Info) Description 08/16/2024 1:30 PM EDT Nurse Only Gynecology/Obstetrics [facility] [address] [place] [phone] Gw, Nurse Obgyn Injection [address] [place] [address] 08/17/2024 10:15 AM EDT Office Visit Gynecology/Obstetrics [facility] [address] [place] [phone] Janett Carvalho CRNP [address] [place] [address] Health Maintenance Due Date Last Done Comments Depression Monitoring 2008 Pneumococcal Vaccine: Pediatrics (0 to 5 Years) and At-Risk Patients (6 to 18 Years and 19+ Years) (1 of 2 - PCV) 2015 Lipid Panel 2016 *SPIROMETRY ONCE FOR ASTHMA-ADULT 07/05/2016 COVID-19 Vaccine ( - season) 2024 Influenza Vaccine (FLU shot) [...]
--- OUTSIDE RECORDS SUMMARY | 2024-08-24 06:54 | External Medical Summary | Summary of Care ---
Author Name Unknown Organization [facility] Address [address] [facility] [place] [address] Phone [phone] Care Team Providers Care Grinder Tender Name Role Phone Unavailable Primary Care Provider Unavailabl e Encounter Details Date Type Department Care Team (Late st Contact Info) Description 08/15/2024 Telephone Gynecology/Obstetrics [facility] [address] [place] [address] Talon Tang MD [address] [place] [phone] Allergies Active Allergy Reactions Criticality Noted Date [...] due date letter for patient to attend [facility] 06/19/2020 France Tyler RN 06/19/2020 1st [...] due date letter for pt to attend [facility] 10/10/2014 France Tyler RN Home Nursing Pt declined 10/10/2014 France Tyler RN Problem Action Taken Date entered Entered by Date resolved Current needs or questions Patient denies having any current needs or questions 11/07/2014 Jessie Yusuf RN 11/07/14 Problem Action Taken Date entered Entered by Date resolved Nutrition follow up Seen by [facility] 01/22/2015 Jessie Yusuf RN 01/22/15 Problem [...] entered Entered by Date resolved Nutrition Attending [facility] 04/18/2015 Jessie Yusuf RN 04/18/15 Problem [...] money to get more. Never true 03/01/2024 [place] Depression Scale Answer Date Recorded [place] Depression Scale Total 4 08/02/2024 The thought [...] encounter Miscellaneous Notes * Telephone Encounter - Celestine Ricci MD - 08/16/2024 3:23 PM EDT Thank you! * Telephone Encounter - Deanna Brown RN - 08/16/2024 1:26 PM EDT Elissa signed this as pt was in office. * Addendum Note - Yael Siddiqui LPN - 08/16/2024 11:55 AM EDT Addended by: YAEL SIDDIQUI on: 08/16/2024 11:55 AM Modules accepted: Orders * Telephone Encounter - Yael Siddiqui LPN - 08/16/2024 11:54 AM EDT Patient had first dose of betamethasone at l+d yesterday with dr tang. She is coming in today for 2nd. Would you sign order for dr tang please? * Telephone Encounter - Babita Downing RN [...] Gynecology/Obstetrics [facility] [address] [place] [address] Janett Carvalho CRNP [address] [place] [address] Health Maintenance Due Date Last Done Comments Depression Monitoring 2008 Pneumococcal Vaccine: Pediatrics (0 to 5 Years) and At-Risk Patients (6 to 18 Years and 19+ Years) (1 of 2 - PCV) 2015 Lipid Panel 2016 *SPIROMETRY ONCE FOR ASTHMA-ADULT 07/05/2016 COVID-19 Vaccine (1 - 2023- season) 2024 Influenza Vaccine (FLU shot) (Season [...]
--- OUTSIDE RECORDS SUMMARY | 2024-08-24 06:54 | External Medical Summary | Summary of Care ---
Author Name Unknown Organization [facility] Address [address] [facility] [place] [address] Phone [phone] Care Team Providers Care Exercise Science Instructor Name Role Phone Unavailable Primary Care Provider Unavailabl e Encounter Details Date Type Department Care Team (Late st Contact Info) Description 08/15/2024 Result Scan Unspecified Department <No scans attached> Allergies Active Allergy Reactions Criticality Noted Date [...] due date letter for patient to attend [place] 06/19/2020 France Tyler RN 06/19/2020 1st trimester [...] History of depression 06/19/2020 Overview (11/06/2020): Cora prilya Maternal asthma complicating Overview (11/06/2020): 11/06/20 - [...] due date letter for pt to attend [facility] 10/10/2014 France Tyler RN Home Nursing Pt declined 10/10/2014 France Tyler RN Problem Action Taken Date entered Entered by Date resolved Current needs or questions Patient denies having any current needs or questions 11/07/2014 Jessie Yusuf RN 11/07/14 Problem Action Taken Date entered Entered by Date resolved Nutrition follow up Seen by [facility] 01/22/2015 Jessie Yusuf RN 01/22/15 Problem Action [...] entered Entered by Date resolved Nutrition Attending [facility] 04/18/2015 Jessie Yusuf RN 04/18/15 Problem Action [...] (H iberix, ActHib) 01/16/1997,1996,1996,09/01 HPV Vaccine, 4-Valent 02/02/2011,07/21/2010,11/0 08/2007 Hepatitis A, Ped/Adol., 18 y ear and [...] money to get more. Never true 03/01/2024 [place] Depression Scale Answer Date Recorded [place] Depression Scale Total 4 08/02/2024 The thought [...] AM EDT documented as of this encounter Plan of Treatment Upcoming Encounters Date Type Department Care Team (Late st Contact Info) Description 08/16/2024 1:30 PM EDT Nurse Only Gynecology/Obstetrics [facility] [address] [place] [phone] Gw, Nurse Obgyn Injection [address] [place] [address] 08/17/2024 10:15 AM EDT Office Visit Gynecology/Obstetrics [facility] [address] [place] [address] Janett Carvalho CRNP [address] [place] [address] Health Maintenance Due Date Last Done Comments [...] Not on filedocumented as of this encounter Procedures Procedure Name Priority Date/Time Associated Diagnosis Comments OUTSIDE LAB RESULTS 08/15/2024 RADIOLOGY SCANNED RESULT 08/15/2024 documented in this encounter Results * RADIOLOGY SCANNED RESULT (08/15/2024) 08/15/2024 us No Physician Data Unknown DIAGNOSTIC RADIOLOGY S ERVICES Final Result * OUTSIDE LAB RESULTS (08/15/2024) 08/15/2024 us No Physician Data Unknown LABORATORY Final Result documented in this encounter
--- OUTSIDE RECORDS SUMMARY | 2024-08-24 06:54 | External Medical Summary | Summary of Care ---
Author Name Unknown Organization [facility] Address [address] [facility] [place] [address] Phone [phone] Care Team Providers Care Director Of Payroll Name Role Phone Unavailable Primary Care Provider Unavailabl e Encounter Details Date Type Department Care Team (Late st Contact Info) Description 08/15/2024 Telephone Gynecology/Obstetrics [facility] [address] [place] [address] Talon Tang MD [address] [place] [phone] Allergies Active Allergy Reactions Criticality Noted Date [...] due date letter for patient to attend [facility] 06/19/2020 France Tyler RN 06/19/2020 1st [...] due date letter for pt to attend [facility] 10/10/2014 France Tyler RN Home Nursing Pt declined 10/10/2014 France Tyler RN Problem Action Taken Date entered Entered by Date resolved Current needs or questions Patient denies having any current needs or questions 11/07/2014 Jessie Yusuf RN 11/07/14 Problem Action Taken Date entered Entered by Date resolved Nutrition follow up Seen by [facility] 01/22/2015 Jessie Yusuf RN 01/22/15 Problem [...] entered Entered by Date resolved Nutrition Attending [facility] 04/18/2015 Jessie Yusuf RN 04/18/15 Problem [...] money to get more. Never true 03/01/2024 [place] Depression Scale Answer Date Recorded [place] Depression Scale Total 4 08/02/2024 The thought [...] Gynecology/Obstetrics [facility] [address] [place] [phone] Janett Carvalho CRNP [address] [place] [address] Health Maintenance Due Date Last Done Comments [...]
--- OUTSIDE RECORDS SUMMARY | 2024-08-24 06:54 | External Medical Summary | Summary of Care ---
Author Name Unknown Organization [facility] Address [address] [facility] [place] [address] Phone [phone] Care Team Providers Care Movie Shot Camera Operator Name Role Phone Unavailable Primary Care Provider Unavailabl e Encounter Details Date Type Department Care Team (Late st Contact Info) Description 08/15/2024 Telephone Gynecology/Obstetrics [facility] [address] [place] [address] Talon Tang MD [address] [place] [phone] Allergies Active Allergy Reactions Criticality Noted Date [...] due date letter for patient to attend [facility] 06/19/2020 France Tyler RN 06/19/2020 1st [...] due date letter for pt to attend [facility] 10/10/2014 France Tyler RN Home Nursing Pt declined 10/10/2014 France Tyler RN Problem Action Taken Date entered Entered by Date resolved Current needs or questions Patient denies having any current needs or questions 11/07/2014 Jessie Yusuf RN 11/07/14 Problem Action Taken Date entered Entered by Date resolved Nutrition follow up Seen by [facility] 01/22/2015 Jessie Yusuf RN 01/22/15 Problem [...] entered Entered by Date resolved Nutrition Attending [facility] 04/18/2015 Jessie Yusuf RN 04/18/15 Problem [...] money to get more. Never true 03/01/2024 [place] Depression Scale Answer Date Recorded [place] Depression Scale Total 4 08/02/2024 The thought [...] Gynecology/Obstetrics [facility] [address] [place] [address] Janett Carvalho CRNP [address] [place] [address] Health Maintenance Due Date Last Done Comments [...]
--- OUTSIDE RECORDS SUMMARY | 2024-08-24 06:55 | External Medical Summary | Summary of Care ---
Author Name Unknown Organization [facility] Address [address] [facility] [place] [address] Phone [phone] Care Team Providers Care Bell Attendant Name Role Phone Unavailable Primary Care Provider Unavailabl e Encounter Details Date Type Department Care Team (Late st Contact Info) Description 08/15/2024 Telephone Gynecology/Obstetrics [facility] [address] [place] [address] Talon Tang MD [address] [place] [phone] Allergies Active Allergy Reactions Criticality Noted Date [...] date letter for patient to attend [facility] 06/19/2020 France Tyler RN 06/19/2020 1st [...] date letter for pt to attend [facility] 10/10/2014 France Tyler RN Home Nursing Pt declined 10/10/2014 France Tyler RN Problem Action Taken Date entered Entered by Date resolved Current needs or questions Patient denies having any current needs or questions 11/07/2014 Jessie Yusuf RN 11/07/14 Problem Action Taken Date entered Entered by Date resolved Nutrition follow up Seen by [facility] 01/22/2015 Jessie Yusuf RN 01/22/15 Problem [...] Entered by Date resolved Nutrition Attending [facility] 04/18/2015 Jessie Yusuf RN 04/18/15 Problem [...] money to get more. Never true 03/01/2024 [place] Depression Scale Answer Date Recorded [place] Depression Scale Total 4 08/02/2024 The thought [...] encounter Miscellaneous Notes * Telephone Encounter - Ingrid Segundo LPN [...] 08/17/2024 10:15 AM EDT Office Visit Gynecology/Obstetrics [facility] [address] [place] [phone] Janett Carvalho CRNP [address] [place] [address] Health Maintenance Due Date Last Done Comments [...] complete this topic HPV (Gardasil) Vaccine Completed , 07/21/2010, 03/20/2008 Gonorrhea / Chlamydia Screen Discontinued 03/01/2024, 06/19/2020, 07/06/2018, Additional history exists Meningitis B Vaccine (Bexsero/Trumemba) Aged Out No longer eligible based on patient's age to complete this topic documented as of this encounter Medical Devices Not on filedocumented as of this encounter
[2024-08-24] MEDS ORDERED: LIDOCAINE 1% LOCAL 20 ML VIAL INFIL PRN (09:50)
[2024-08-24] MEDS ORDERED: OXYTOCIN 30 UNITS/NSS 30 UNITS/500 ML BAG IV PRN ×2 (09:50→17:14)
[2024-08-24 10:37] LABS: Hematocrit (blood only) 36.4 % (37.0-47.0); Hemoglobin 12.7 g/dl (12.0-16.0); Mean Corpuscular Hemoglobin 31.8 pg (25.0-34.0); Mean Corpuscular Hgb Conc 34.9 g/dL (32.0-36.0); Mean Corpuscular Volume 91.2 fL (80.0-100.0); Mean Platelet Volume 10.3 fL (9.4-12.4); Platelet Count 215 K/uL (130-400); RDW Coefficient of Variation 12.2 % (11.5-14.5); RDW Standard Deviation 40.8 fL (36.4-46.3); Red Blood Count 3.99 M/uL (4.20-5.40); White Blood Count 12.84 K/ul (4.8-10.8)
[2024-08-24] MEDS: PENICILLIN GK 6 MU in DEXTROSE 5% 250 ML IV STA (10:44)
[2024-08-24] MEDS: LACTATED RINGER'S 1,000 ML IV PRN (10:44)
[2024-08-24] MEDS ORDERED: BETAMETH SOD PHOS/ACETATE IA 6 MG/ML IM STA (10:50)
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
[2024-08-24] MEDS: OXYTOCIN 30 UNITS/NSS 30 UNITS/500 ML BAG IV PRN (11:11)
--- NOTE | 2024-08-24 13:48 | Labor Progress Brief Note ---
Date of Service August 24, 2024 Physical Exam Genitourinary: Manual OB Exam: + cervical dilation 2 cm, + cervical effacement 70% and + station -2 OB Exam Monitor Tracing: + external FHT monitor used, + external uterine monitor used, + category I and + normal FHT variability Results & Data Vital Signs (Past 12 Hours) Vital Signs Temp Pulse Resp BP 08/24/24 13:38 89 126/72 08/24/24 13:10 77 118/64 08/24/24 12:39 81 118/60 08/24/24 12:23 80 117/62 08/24/24 12:09 78 117/71 08/24/24 12:01 87 122/67 08/24/24 11:38 85 118/68 08/24/24 11:01 36.6 C 08/24/24 09:01 36.5 C 08/24/24 07:31 116 H 116/71 08/24/24 07:23 36.5 C 116 H 18 116/71
[2024-08-24] MEDS: PENICILLIN GK 3 MU in DEXTROSE 5% 100 ML IV PRN (14:57)
[2024-08-24] MEDS: BUTORPHANOL TARTRATE 1 MG/ML VIAL IV ONE (15:22)
--- NOTE | 2024-08-24 16:34 | Labor Progress Brief Note ---
Date of Service August 24, 2024 Physical Exam Genitourinary: Manual OB Exam: + cervical dilation 7 cm, + cervical effacement 100%, + station -1 and + amniotic fluid meconium I ruptured forebag with Amni-hook meconium stained fluid Results & Data Vital Signs (Past 12 Hours) Vital Signs Temp Pulse Resp BP 08/24/24 16:10 77 120/61 08/24/24 15:38 78 118/68 08/24/24 15:09 106 H 115/61 08/24/24 15:00 36.7 C 08/24/24 14:39 97 H 110/61 08/24/24 14:09 88 107/58 L 08/24/24 13:38 89 126/72 08/24/24 13:10 77 118/64 08/24/24 13:01 36.7 C 08/24/24 12:39 81 118/60 08/24/24 12:23 80 117/62 08/24/24 12:09 78 117/71 08/24/24 12:01 87 122/67 08/24/24 11:38 85 118/68 08/24/24 11:01 36.6 C 08/24/24 09:01 36.5 C 08/24/24 07:31 116 H 116/71 08/24/24 07:23 36.5 C 116 H 18 116/71
[2024-08-24] MEDS ORDERED: BENZOCAINE 20% SPRY 85 APPLN/85 GM CAN EXT PRN (17:14)
[2024-08-24] MEDS ORDERED: HYDROCORTISONE ACETATE 25 MG SUPP PR PRN (17:14)
[2024-08-24] MEDS ORDERED: bisacodyL 10 MG SUPP PR PRN (17:14)
[2024-08-24] MEDS ORDERED: DIPHTHER/TETAN/PERTUS Vaccine (Tdap, Adol/Adult) 0.5mL IM ONE (17:14)
--- NOTE | 2024-08-24 17:16 | Delivery Summary ---
Vaginal Delivery Summary Date of Service August 24, 2024 Vaginal Delivery Summary live male HUONG over intact perineum with true knot x1 noted and with delayed cord clamping and Apgars 8/9 weight pending. Cord blood obtained followed by spontaneous delivery of intact placenta. No tears. QBL 101 ml. Final sponge and instrument counts are correct. Mom and baby stable.
[2024-08-24] MEDS: IBUPROFEN 600 MG TAB PO PRN (17:44)
[2024-08-24] MEDS: ACETAMINOPHEN 325 MG TAB PO PRN (21:02)
[2024-08-24] MEDS: DOCUSATE SODIUM 100 MG CAP PO SCH (21:02)
[2024-08-25 08:29] LABS: Hematocrit (blood only) 34.7 % (37.0-47.0); Hemoglobin 12.1 g/dl (12.0-16.0); Mean Corpuscular Hemoglobin 31.8 pg (25.0-34.0); Mean Corpuscular Hgb Conc 34.9 g/dL (32.0-36.0); Mean Corpuscular Volume 91.3 fL (80.0-100.0); Mean Platelet Volume 10.3 fL (9.4-12.4); Platelet Count 209 K/uL (130-400); RDW Coefficient of Variation 12.4 % (11.5-14.5); RDW Standard Deviation 40.8 fL (36.4-46.3); White Blood Count 14.88 K/ul (4.8-10.8)
[2024-08-25] MEDS: FERROUS SULFATE 325 MG TAB PO SCH (09:00)
[2024-08-25] MEDS: PRENATAL VITAMIN 1 TAB PO SCH (09:01)
--- NOTE | 2024-08-25 09:08 | Obstetrical Progress Note ---
Date of Service August 25, 2024 Assessment & Plan Admission and Anticipated Discharge Date Admission Date: August 24, 2024 Subjective abdomen soft and non tender passing gas no calf tenderness ambulating well vaginal bleeding scant hgb 12.1 Results & Data Vital Signs (Past 12 Hours) Vital Signs Temp Pulse Resp BP Pulse Ox O2 Del Method 08/25/24 07:40 36.5 C 77 18 116/74 100 Room Air 08/25/24 03:11 36.9 C 73 16 103/69 98 Room Air 08/24/24 23:05 36.9 C 83 16 98/61 L 97 Room Air
[2024-08-25 15:53] VITALS: O2SAT 99
[2024-08-25] MEDS: bisacodyL 5 MG TABEC PO SCH (19:49)
[2024-08-26 07:23] LABS: Hemoglobin 11.9 g/dl (12.0-16.0)
--- NOTE | 2024-08-26 10:48 | Obstetrical Progress Note ---
Date of Service August 26, 2024 Assessment & Plan (1) Normal course: Plan Post day #2 Vaginal delivery Pt doing well No complaints Stable vitals Stable labs Tolerating PO food and med Pt wishes to be discharged home Results & Data Vital Signs (Past 12 Hours) Vital Signs Temp Pulse Resp BP Pulse Ox O2 Del Method 08/25/24 23:15 36.8 C 72 16 103/66 99 Room Air
[2024-08-26 11:20] VITALS: BP 114/67; PULSE 97; RESP 18; TEMP 97.7
== END 2024-08-26 13:30 | disposition home or self-care (01) | DRG 807 ==
LOC: OPB 06:46 → 4S1 06:49 → 4E2 20:03